=== PATIENT | female | born 1970 | race Caucasian/White ===

== ENCOUNTER 2017-06-10 02:35 | Inpatient (IN) | payer BC, OTHER ==
[~2017-06-10] VITALS: Ht 162.6 cm; Wt 70.4 kg
[~2017-06-10 02:35] MED LIST: ASPCH81X PO; ATOR-24 PO; CHN5 PO; FRRS300 PO; GLC/500 PO; LPR25 PO; LSN25 PO; PEDICHW50 PO; PRLSR20 PO
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
[2017-06-10 03:35] LABS: BASO % 0.3 %; BASO ABS # 0.04 K/uL (0-0.2); COMPLETE YES; HEMATOCRIT 42.7 % (37-47); IG% 0.6 %; LYMPH % 26.4 %; LYMPH ABS # 3.25 K/uL (1.2-3.4); MEAN CELL VOLUME 87.1 fL (80-100); MEAN CORPUSCULAR HEMOGLOBIN 31.2 pg (25-34); MEAN CORPUSCULAR HGB CONC 35.8 g/dl (32-36); MEAN PLATELET VOLUME 10.8 fL (7.4-10.4); MONO % 5.9 %; NEUT % 65.8 %; PLATELET COUNT 210 K/uL (130-400)
[2017-06-10 03:43] LABS: PROTHROMBIN TIME (PATIENT) 10.7 SECONDS (9.0-12.0)
[2017-06-10 04:03] LABS: PREG INTERNAL NEGATIVE QC NEG CLEAR BACKGROUND; PREG INTERNAL POSITIVE QC POS CONTROL LINE
[2017-06-10 04:11] LABS: ALKALINE PHOSPHATASE 86 U/L (45-117); ALT/SGPT 28 U/L (12-78); AST/SGOT 21 U/L (15-37); BLOOD UREA NITROGEN 7 mg/dl (7-18); BUN/CREATININE RATIO 7.7 (10-20); CALCIUM 8.4 mg/dl (8.5-10.1); CARBON DIOXIDE 19 mmol/L (21-32); CHLORIDE 104 mmol/L (98-107); CREATININE 0.94 mg/dl (0.60-1.20); GLUCOSE 383 mg/dl (70-99); POTASSIUM 3.4 mmol/L (3.5-5.1); SODIUM 137 mmol/L (136-145)
[2017-06-10] MEDS ORDERED: LOSA1TAB PO (04:21)
[2017-06-10 04:22] LABS: BETA-HYDROXYBUTYRATE 2.74 mg/dL (0.2-2.81)
[2017-06-10] MEDS ORDERED: FERR1TAB13 PO (04:23)
[2017-06-10] MEDS ORDERED: METO25TA56 PO (04:24)
[2017-06-10] MEDS ORDERED: OPTIRAY 320 IV PRN (04:30)
[2017-06-10 05:15] LABS: URINE APPEARANCE CLEAR (CLEAR); URINE BILIRUBIN NEG (NEG); URINE COLOR YELLOW; URINE EPITHELIAL CELL AUTO >30 /lpf (0-5); URINE NITRITE NEG (NEG); URINE SPECIFIC GRAVITY 1.036 (1.000-1.030); UROBILINOGEN NEG (NEG); ZZUR CULT IF INDIC CLEAN CATCH NO
[2017-06-10 05:17] LABS: MANUAL MICROSCOPIC REQUIRED? NO; REVIEW REQ? YES
[2017-06-10] MEDS ORDERED: CEFAZOLIN SOD 1000MG/5 ML IV PUSH IV STA (05:30)
[2017-06-10] MEDS ORDERED: DIPHTHERIA/TETANUS/PERTUSSIS 0.5 ML SYR/VIAL IM. ONE (05:30)
[2017-06-10] MEDS ORDERED: LIDOCAINE/EPINEPHRINE 1% 20 ML VIAL INFIL ONE (05:30)
[2017-06-10] MEDS ORDERED: XYLOCAINE 1%/SOD BICARB 20 ML VIAL INFIL ONE (05:30)
[2017-06-10 05:33] LABS: BENZODIAZEPINE, URINE NEG (NEG); COCAINE,URINE NEG (NEG); PHENCYCLIDINE, URINE NEG (NEG)
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
[2017-06-10] MEDS ORDERED: FENTANYL CITRATE INJ 50 MCG/1 ML 2 ML VIAL IV STA (07:02)
[2017-06-10] MEDS ORDERED: SODIUM CHLORIDE 0.9% 500ML 500 ML IV STA (07:04)
[2017-06-10] MEDS ORDERED: METFORMIN HCL 500 MG TAB PO STA (07:04)
[2017-06-10] MEDS ORDERED: NovoLIN-R INSULIN PER UNIT CHARGE SC STA ×3 (07:05→11:41)
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
--- NOTE | 2017-06-10 08:13 | EMERGENCY ROOM VISIT NOTE ---
ED Visit Note Patient was seen and evaluated at the request of my attending physician, Dr. holland, for a left forearm laceration. Please see Dr. Holland's dictation for full history of present illness and Emergency Department course outside of this repair. In short, the patient has a self-inflicted laceration to the left forearm. This is a complicated Y-shaped laceration is deep and does penetrate into the muscle belly of the forearm. The laceration measures 28 cm in total. The patient is able to open and close her hand. She is able to move her fingers in full against resistance. She is able to touch her fingers to her thumb. No appreciable numbness noted on examination. Laceration repair. Patient elects to have their laceration repaired. Verbal consent was obtained to perform the procedure. There is an abundance of materials available for the procedure. Patient is not allergic to latex. Using sterile technique the wound was cleaned with Betadine. The area was sterilely draped. 20 ml of 1% buffered lidocaine with epi was used to anesthetize the left forearm. Once the patient was anesthetized, the wound was copiously irrigated under pressure with greater than 1 liter of sterile saline. The wound was explored and there is exposure of the muscle belly with distal laceration of what appears to be in the brachioradialis. The deep structures and fascia were approximated utilizing 5 simple interrupted 6-0 Vicryl sutures. The laceration was repaired using 35 simple interrupted 6-0 nylon sutures with the wound edges being well approximated. Hemostasis was achieved. The area was cleaned with sterile saline and dressed with bacitracin ointment and bandage. Blood loss was negligible. The patient tolerated the procedure well. I referred back to Dr. Holland's dictation for further patient course and disposition. Current/Historical Medications Scheduled Aspirin (Aspirin Chewable), 81 MG PO QAM Atorvastatin (Lipitor), 40 MG PO QAM Ferrous Sulfate (Kp Ferrous Sulfate), 325 MG PO BID Losartan Potassium (Cozaar), 25 MG PO DAILY Metformin Hcl (Glucophage), 500 MG PO QAM Metoprolol Tartrate (Lopressor) (Lopressor), 25 MG PO BID Omeprazole (Prilosec), 20 MG PO QAM Pediatric Multiple Vitamin W/ (Flintstones Chewable), 1 TAB PO QAM Allergies Coded Allergies: Penicillins (Verified Allergy, Mild, RASH, 01/20/16) Vital Signs Date Time Temp Pulse Resp B/P (MAP) Pulse Ox O2 Delivery O2 Flow Rate FiO2 06/10/17 07:30 96 20 117/66 96 Room Air 06/10/17 06:03 99 06/10/17 06:02 97 16 103/67 96 Room Air 06/10/17 05:32 98 17 116/68 97 Room Air 06/10/17 05:02 99 17 129/72 99 Room Air 06/10/17 04:27 91 14 91/52 90 Room Air 06/10/17 02:56 110 06/10/17 02:37 36.7 119 21 131/81 96 Room Air Laboratory Results 06/10/17 03:22 Red Blood Count 4.90, Mean Corpuscular Volume 87.1, Mean Corpuscular Hemoglobin 31.2, Mean Corpuscular Hemoglobin Concent 35.8, Mean Platelet Volume 10.8, Neutrophils (%) (Auto) 65.8, Lymphocytes (%) (Auto) 26.4, Monocytes (%) (Auto) 5.9, Eosinophils (%) (Auto) 1.0, Basophils (%) (Auto) 0.3, Neutrophils # (Auto) 8.10, Lymphocytes # (Auto) 3.25, Monocytes # (Auto) 0.72, Eosinophils # (Auto) 0.12, Basophils # (Auto) 0.04 06/10/17 03:22 Test 06/10/17 03:22 06/10/17 04:56 White Blood Count 12.30 K/uL (4.8-10.8) Red Blood Count 4.90 M/uL (4.2-5.4) Hemoglobin 15.3 g/dL (12.0-16.0) Hematocrit 42.7 % (37-47) Mean Corpuscular Volume 87.1 fL (80-100) Mean Corpuscular Hemoglobin 31.2 pg (25-34) Mean Corpuscular Hemoglobin Concent 35.8 g/dl (32-36) Platelet Count 210 K/uL (130-400) Mean Platelet Volume 10.8 fL (7.4-10.4) Neutrophils (%) (Auto) 65.8 % Lymphocytes (%) (Auto) 26.4 % Monocytes (%) (Auto) 5.9 % Eosinophils (%) (Auto) 1.0 % Basophils (%) (Auto) 0.3 % Neutrophils # (Auto) 8.10 K/uL (1.4-6.5) Lymphocytes # (Auto) 3.25 K/uL (1.2-3.4) Monocytes # (Auto) 0.72 K/uL (0.11-0.59) Eosinophils # (Auto) 0.12 K/uL (0-0.5) Basophils # (Auto) 0.04 K/uL (0-0.2) RDW Standard Deviation 41.8 fL (36.4-46.3) RDW Coefficient of Variation 13.1 % (11.5-14.5) Immature Granulocyte % (Auto) 0.6 % Immature Granulocyte # (Auto) 0.07 K/uL (0.00-0.02) Prothrombin Time 10.7 SECONDS (9.0-12.0) Prothromb Time International Ratio 1.0 (0.9-1.1) Anion Gap 14.0 mmol/L (3-11) Est Creatinine Clear Calc Drug Dose 73.3 ml/min Estimated GFR () 84.9 Estimated GFR (Non- 73.3 BUN/Creatinine Ratio 7.7 (10-20) Calcium Level 8.4 mg/dl (8.5-10.1) Total Bilirubin 0.3 mg/dl (0.2-1) Aspartate Amino Transf (AST/SGOT) 21 U/L (15-37) Alanine Aminotransferase (ALT/SGPT) 28 U/L (12-78) Alkaline Phosphatase 86 U/L (45-117) Troponin I < 0.015 ng/ml (0-0.045) Total Protein 7.1 gm/dl (6.4-8.2) Albumin 3.5 gm/dl (3.4-5.0) Globulin 3.6 gm/dl (2.5-4.0) Albumin/Globulin Ratio 1.0 (0.9-2) Beta-Hydroxybutyric Acid 2.74 mg/dL (0.2-2.81) Human Chorionic Gonadotropin, Qual POS (NEG) Human Chorionic Gonadotropin, Quant 8 mIU/mL Ethyl Alcohol mg/dL 148.0 mg/dl (0-3) Urine Color YELLOW Urine Appearance CLEAR (CLEAR) Urine pH 5.0 (4.5-7.5) Urine Specific [place] 1.036 (1.000-1.030) Urine Protein 3+ (NEG) Urine Glucose (UA) 3+ (NEG) Urine Ketones NEG (NEG) Urine Occult Blood NEG (NEG) Urine Nitrite NEG (NEG) Urine Bilirubin NEG (NEG) Urine Urobilinogen NEG (NEG) Urine Leukocyte Esterase NEG (NEG) Urine WBC (Auto) 1-5 /hpf (0-5) Urine RBC (Auto) 0-4 /hpf (0-4) Urine Hyaline Casts (Auto) 1-5 /lpf (0-5) Urine Epithelial Cells (Auto) >30 /lpf (0-5) Urine Bacteria (Auto) NEG (NEG) Urine Renal Epithelial Cells 0-5 /lpf (0-5) Urine Opiates Screen NEG (NEG) Urine Methadone, Qualitative NEG (NEG) Urine Barbiturates NEG (NEG) Urine Phencyclidine (PCP) Level NEG (NEG) Ur Amphetamine/Methamphetamine NEG (NEG) MDMA (Ecstasy) Screen NEG (NEG) Urine Benzodiazepines Screen NEG (NEG) Urine Cocaine Metabolite NEG (NEG) Urine Marijuana (THC) POS (NEG) Medications Administered Medications (Trade) Dose Ordered Sig/Marcos Route Start Time Stop Time Status Last Admin Dose Admin Diphtheria/ Pertussis/Tetanus Vacc (Adacel Inj) 0.5 ml ONCE ONCE IM. 06/10/17 05:30 06/10/17 05:31 DC 06/10/17 05:46 0.5 ML Cefazolin Sodium (Cefazolin 1000mg Iv Push) 1,000 mg NOW STAT IV 06/10/17 05:30 06/10/17 05:32 DC 06/10/17 05:46 1,000 MG Fentanyl Citrate (Fentanyl Inj) 75 mcg NOW STAT IV 06/10/17 07:02 06/10/17 07:03 DC 06/10/17 07:10 75 MCG Sodium Chloride 500 ml @ 999 mls/hr Q31M STAT IV 06/10/17 07:04 06/10/17 07:34 DC 06/10/17 07:22 999 MLS/HR Insulin Human Regular (novoLIN-R U-100 PER UNIT) 4 units NOW STAT SC 06/10/17 07:05 06/10/17 07:06 DC 06/10/17 07:05 4 UNITS Departure Information Impression Primary Impression: Alcohol intoxication Additional Impressions: Noncompliance Laceration Hyperglycemia CHI (closed head injury) Self-harming behavior Facial contusion Abrasion Referrals Live Alfonso D.O. (PCP) Patient Instructions [facility] Problem Qualifiers
--- NOTE | 2017-06-10 08:24 | DIAGNOSTIC IMAGING REPORT ---
HEAD WITHOUT CONTRAST (CT) CLINICAL HISTORY: 47 years-old Female presenting with trauma. TECHNIQUE: Multidetector CT imaging of the head was performed without the use of intravenous contrast. IV contrast: None. A dose lowering technique was used consistent with the principles of ALARA (as low as reasonably achievable). COMPARISON: None. CT DOSE (mGy.cm): The estimated cumulative dose is 1573.13 mGy.cm. FINDINGS: Vp Foundation topogram: Unremarkable. Ventricles and sulci normal in size. Brain parenchyma normal in appearance with preserved donohue-white differentiation. No mass effect or midline shift. No hemorrhage or acute territorial infarct. No extra-axial fluid collection. Paranasal sinuses and mastoid air cells clear. Calvarium intact. IMPRESSION: 1. No acute intracranial abnormality. Electronically signed by: Sarmad Israel M.D. 06/10/2017 8:23 AM Dictated Date/Time: 06/10/2017 8:21 AM
--- NOTE | 2017-06-10 08:28 | DIAGNOSTIC IMAGING REPORT ---
CERVICAL SPINE W/O CLINICAL HISTORY: 47 years-old Female presenting with trauma, physical sulci, altered mental status. TECHNIQUE: Multidetector CT of the cervical spine was performed without the use of intravenous contrast. IV contrast: None. A dose lowering technique was used consistent with the principles of ALARA (as low as reasonably achievable). COMPARISON: None. CT DOSE (mGy.cm): The estimated cumulative dose is 1573.[address] scans. FINDINGS: Concrete Layer topogram: Unremarkable. Straightening of normal cervical lordosis likely positional. Vertebral bodies maintain normal height and alignment. Intervertebral disc spaces preserved. Disc osteophyte complex noted at C6-7 with prominent posterior bony spurring resulting in osseous spinal canal narrowing at this level. No osseous neural foraminal narrowing. No acute fracture or malalignment. Mild degenerative changes also noted at the lateral dental reticulation. Paraspinal musculature within normal limits. Small amount of fluid and debris distends the cervical esophagus. Lung apices clear. IMPRESSION: 1. No acute osseous injury of the cervical spine. 2. Fluid and debris distends the cervical esophagus. Electronically signed by: Sarmad Israel M.D. 06/10/2017 8:26 AM Dictated Date/Time: 06/10/2017 8:23 AM
--- NOTE | 2017-06-10 08:29 | DIAGNOSTIC IMAGING REPORT ---
R FOREARM 2 VIEWS ROUTINE CLINICAL HISTORY: 47 years-old Female presenting with trauma, physical sulci, altered mental status. TECHNIQUE: Frontal and lateral views of the right forearm are obtained. COMPARISON: None. FINDINGS: A peripheral intravenous catheter overlies the antecubital fossa. No acute fracture or malalignment. Elbow joint and radiocarpal articulations intact. Proximal and distal radial ulnar articulations intact. No degenerative change. No radiographic soft tissue abnormality. IMPRESSION: No acute osseous injury of the right forearm. Electronically signed by: Sarmad Israel M.D. 06/10/2017 8:27 AM Dictated Date/Time: 06/10/2017 8:26 AM
--- NOTE | 2017-06-10 08:33 | DIAGNOSTIC IMAGING REPORT ---
FACIAL BONES-MXILLOFAC WITHOUT CLINICAL HISTORY: 47 years-old Female presenting with trauma, physical solve, altered mental status. TECHNIQUE: Multidetector CT of the face was performed without the use of intravenous contrast. IV contrast: None. A dose lowering technique was used consistent with the principles of ALARA (as low as reasonably achievable). COMPARISON: None. CT DOSE (mGy.cm): The estimated cumulative dose is 1573.[address] scans. FINDINGS: Edi Programmer Analyst topogram: Unremarkable. Asymmetric soft tissue swelling and infiltration of the subcutaneous tissues overlying the left periorbital and premaxillary region. The orbits are normal. No subjacent osseous injury. Minimal bony nasal septal deviation to the left. The nasal bones demonstrate deviation to the right, which may be chronic. No displaced fracture to suggest acute injury. Limited calcification along the cutis of the for head likely relates to cystic acne. Limited intracranial evaluation within normal limits. Paranasal sinuses and mastoid air cells clear. IMPRESSION: No acute osseous injury of the face. Superficial soft tissue contusion of the left periorbital/premaxillary region. Electronically signed by: Sarmad Israel M.D. 06/10/2017 8:32 AM Dictated Date/Time: 06/10/2017 8:28 AM
[2017-06-10 09:00] VITALS: O2SAT 97
[2017-06-10] MEDS ORDERED: ACETAMINOPHEN 325 MG TAB PO STA (09:41)
[2017-06-10] MEDS ORDERED: IBUPROFEN 200 MG TAB PO STA (12:25)
--- NOTE | 2017-06-10 13:54 | EMERGENCY ROOM VISIT NOTE ---
ED Visit Note First contact with patient: 10:55 This patient sinus me at shift change by Dr. holland. At that point the patient was medically cleared and was awaiting psychiatric evaluation. She did cut herself after drinking last night the required a significant amount of stitches and the laceration had been closed by Blake Cameron. The patient's blood sugar was elevated. I checked it before lunch and it was in the low 200s. She was given 5 units of insulin with her lunch. She has been noncompliant with her meds and needs to get started back on her metformin for this. Her test was 8 on the quantitative value. I think this is most likely not a . She has not had a period of 5 months and I think she is perimenopausal and this is falsely elevated. She was further evaluated and is going to be admitted to [address] [place] [address] voluntarily for further inpatient treatment and evaluation.
[2017-06-10] MEDS ORDERED: NURSING VERBAL MED ORDER ONE ×2 (14:00→18:45)
[2017-06-10] MEDS ORDERED: ACETAMINOPHEN 325 MG TAB PO PRN (14:15)
[2017-06-10] MEDS ORDERED: ALUMINUM/MAGNESIUM SUSP 30 ML UDC PO PRN (14:15)
[2017-06-10] MEDS ORDERED: SODIUM CHLORIDE 0.65% NA SOLN 45 ML (OCEAN) PRN (14:15)
[2017-06-10] MEDS ORDERED: MAGNESIUM HYDROXIDE SUSP 30 ML UDC PO PRN (14:15)
[2017-06-10] MEDS ORDERED: hydrOXYzine HCL 25 MG TAB PO PRN ×2 (14:15)
[2017-06-10] MEDS ORDERED: BISMUTH SUBSALICYLATE PER ML OMNICELL CHARGE PO PRN (14:15)
--- NOTE | 2017-06-10 14:58 | Psychiatric Progress Notes ---
Psychiatric Progress Note Date of Service Jun 10, 2017. 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 Patient with no prior psych hx, significant lac while intoxicated during family argument, agreeable to 201. I reviewed case with Dr. Tracy given positive Hcg and concerns about significantly elevated BACs. 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 She is ordered to have repeat Hcg in 2 days with formal consult if doubles, is felt to be unlikely per Dr. Sanchez given reported perimenopause but could not be definitively excluded at this time. Patient requesting nicotine patch. On review of records, patient did not have TSH in ED. Diabetic pharmacist consulted for closer monitoring of glucose control. Added Hgb A1C and TSH to next blood draw. Reviewed with staff, had not yet arrived to unit after 1:30 pm and all felt would be more receptive to prescriber assessment in am. H&P to be officially documented by 1:53 pm on 06/11/17.
[2017-06-10 15:05] VITALS: BP 127/80; PULSE 108; TEMP 37; BMI 26.6
[2017-06-10] MEDS ORDERED: PHARMACY GLYCEMIC MGMT CONSULT PRN (15:26)
[2017-06-10] MEDS: NICOTINE 21 MG/24 HR TDSY TD SCH (15:36)
[2017-06-10] MEDS ORDERED: GLUCOSE 10 TABS/TUBE PO PRN (15:45)
[2017-06-10] MEDS ORDERED: DEXTROSE 50% 50 ML SYR IV PRN (15:45)
[2017-06-10] MEDS ORDERED: GLUCOSE 40% GEL 15 GM TUBE PO PRN (15:45)
[2017-06-10] MEDS ORDERED: GLUCAGON FOR INJ 1 MG VIAL SQ PRN (15:45)
--- NOTE | 2017-06-10 15:52 | Pharmacy Progress Note ---
Glycemic Control Intl Consult Date of Service Jun 10, 2017. Scope Glycemic Pharmacist consulted by Dr Ayala on 05/31/17 for glycemic control and to write orders per [facility] inpatient glycemic control protocol Objective Weight (Kilograms): 70.400 Accuchecks BSG (last 24hrs): Test 06/10/17 03:22 06/10/17 08:08 06/10/17 10:31 06/10/17 11:24 Random Glucose 383 mg/dl (70-99) Bedside Glucose 329 mg/dl (70-90) 239 mg/dl (70-90) 228 mg/dl (70-90) Laboratory Data (last 24hrs) Test 06/10/17 03:22 Anion Gap 14.0 mmol/L BUN/Creatinine Ratio 7.7 Blood Urea Nitrogen 7 mg/dl Creatinine 0.94 mg/dl Potassium Level 3.4 mmol/L Sodium Level 137 mmol/L White Blood Count 12.30 K/uL Red Blood Count 4.90 M/uL Hemoglobin 15.3 g/dL Hematocrit 42.7 % Mean Corpuscular Volume 87.1 fL Mean Corpuscular Hemoglobin 31.2 pg Mean Corpuscular Hemoglobin Concent 35.8 g/dl Platelet Count 210 K/uL Mean Platelet Volume 10.8 fL Neutrophils (%) (Auto) 65.8 % Lymphocytes (%) (Auto) 26.4 % Monocytes (%) (Auto) 5.9 % Eosinophils (%) (Auto) 1.0 % Basophils (%) (Auto) 0.3 % Neutrophils # (Auto) 8.10 K/uL Lymphocytes # (Auto) 3.25 K/uL Monocytes # (Auto) 0.72 K/uL Eosinophils # (Auto) 0.12 K/uL Basophils # (Auto) 0.04 K/uL HbA1c last A1c in record is outdated, 7.7% on 11/13/15 Recent Pertinent Medications Outpatient Anti-diabetic Regimen: * metformin 500mg PO daily Risk Factors for Insulin Resistance: * ? * Stress * Diet Assessment & Plan ASSESSMENT: * 47yo diabetic female with unknown degree of outpatient control * Previous A1c is outdated, re-ordered for next lab draw tomorrow AM * Pt is maintained on oral antidiabetic agents as an outpatient * Will hold oral agents for admission and utilize SQ basal bolus insulin regimen which is the recommended regimen for inpatient glycemic control. * Will initiate weight based insulin dosing for insulin eleanor patient and titrate based on BSG trends. * Human insulins are preferred in if this is confirmed. Both Lantus + NovoLog are safe for use during . * BSG significantly elevated on admission, unsure if this is secondary to baseline poor diabetes control, stress, alcohol, etc * Pt received 2 doses of SQ regular insulin in ED, BSG now trending downwards PLAN FOR INPATIENT GLYCEMIC CONTROL: * Holding outpatient oral diabetes medications {metformin} * Basal insulin * Weight based dosing of Lantus per "scale" based on BSG as insulin needs are uncertain * If BSG below 140mg/dl --> 0 units * If BSG 140-180mg/dl --> 14 units (0.2 units/kg) * If BSG >180mg/dl --> 17 units (0.24 units/kg) * Titrate dosing to goal AM fasting BSG <140mg/dl * Bolus insulin * NovoLog per scale ACHS or Q6hrs while NPO * Goal Range: Low 110 mg/dL - High 140 mg/dL * Correction Factor: 30 mg/dL/unit * Nutritional / Prandial insulin per carb ratio of 1 unit per 10 grams CHO consumed * A1c with AM labs tomorrow * Please note that the plan above was derived based on current level of insulin resistance and hospital stress. These recommendations are appropriate for inpatient admission only. Plan of care upon discharge will need to be reassessed to avoid potential outpatient hypo/hyperglycemia. Thank you.
[2017-06-10] MEDS: IBUPROFEN 600 MG TAB PO PRN ×2 (15:57→22:24)
[2017-06-10 17:38] VITALS: BP 122/84; PULSE 98; TEMP 36.8
[2017-06-10] MEDS: INSULIN GLARGINE SOLOSTAR 100 UNITS/ML 3 ML PEN SC SCH (18:02)
[2017-06-10] MEDS: INSULIN ASPART 100 UNITS/ML 3 ML PEN SC SCH ×2 (18:05→22:00)
[2017-06-10] MEDS: OXYCODONE/ACETAMINOPHEN 5-325 TAB PO PRN (19:11)
[2017-06-10 20:49] VITALS: BP 118/84; PULSE 90; TEMP 36.6
[2017-06-10] MEDS ORDERED: INSULIN GLARGINE SOLOSTAR 100 UNITS/ML 3 ML PEN SC SCH (22:00)
[2017-06-11 08:07] VITALS: BP_SYST 131; BP_SYST 134; BP_DIAS 77; BP_DIAS 78; PULSE 78; TEMP 36.7
[2017-06-11 08:25] LABS: POTASSIUM 3.5 mmol/L (3.5-5.1)
[2017-06-11 08:29] LABS: ESTIMATED AVERAGE GLUCOSE 217 mg/dl; HA1C FLAG Normal (Normal)
[2017-06-11 08:39] LABS: THYROID STIMULATING HORMONE 0.685 uIu/ml (0.300-4.500)
[2017-06-11] MEDS: INSULIN ASPART 100 UNITS/ML 3 ML PEN SC SCH ×4 (08:42→21:39)
[2017-06-11] MEDS ORDERED: METFORMIN HCL 500 MG TAB PO SCH (09:00)
[2017-06-11] MEDS: ASPIRIN 81 MG CHEW PO SCH (09:05)
[2017-06-11] MEDS: LOSARTAN POTASSIUM 25 MG TAB PO SCH (09:05)
[2017-06-11] MEDS: FERROUS SULFATE 325 MG TAB PO SCH ×2 (09:05→17:38)
[2017-06-11] MEDS: FLINTSTONES COMPLETE CHEWABLE TAB PO SCH (09:06)
[2017-06-11] MEDS: ATORVASTATIN 40 MG TAB PO SCH (09:06)
[2017-06-11] MEDS: METOPROLOL TARTRATE 25 MG TAB PO SCH ×2 (09:06→21:37)
[2017-06-11] MEDS: PANTOprazole SOD 40 MG TAB PO SCH (09:07)
[2017-06-11] MEDS: NICOTINE 21 MG/24 HR TDSY TD SCH (09:15)
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
[2017-06-11 13:30] VITALS: BP 125/80; PULSE 81; TEMP 37.3
[2017-06-11] MEDS: OXYCODONE/ACETAMINOPHEN 5-325 TAB PO PRN ×2 (14:35→21:43)
[2017-06-11 15:09] VITALS: Ht 162.6 cm; Wt 70.4 kg
[2017-06-11 16:12] VITALS: BP 101/70; PULSE 98; TEMP 36.4
[2017-06-11] MEDS: IBUPROFEN 600 MG TAB PO PRN (16:35)
[2017-06-11 21:30] VITALS: BP 131/72; PULSE 101; TEMP 36.6
[2017-06-11] MEDS: INSULIN GLARGINE SOLOSTAR 100 UNITS/ML 3 ML PEN SC SCH (21:35)
[2017-06-12 07:03] VITALS: BP_SYST 124; BP_SYST 127; BP_DIAS 80; BP_DIAS 81; PULSE 76; PULSE 78; TEMP 36.9
[2017-06-12] MEDS: OXYCODONE/ACETAMINOPHEN 5-325 TAB PO PRN ×2 (08:08→20:06)
[2017-06-12] MEDS: LOSARTAN POTASSIUM 25 MG TAB PO SCH (08:43)
[2017-06-12] MEDS: ASPIRIN 81 MG CHEW PO SCH (08:43)
[2017-06-12] MEDS: FLINTSTONES COMPLETE CHEWABLE TAB PO SCH (08:44)
[2017-06-12] MEDS: METOPROLOL TARTRATE 25 MG TAB PO SCH ×2 (08:44→21:15)
[2017-06-12] MEDS: FERROUS SULFATE 325 MG TAB PO SCH ×2 (08:44→17:39)
[2017-06-12] MEDS: ATORVASTATIN 40 MG TAB PO SCH (08:44)
[2017-06-12] MEDS: PANTOprazole SOD 40 MG TAB PO SCH (08:44)
[2017-06-12] MEDS: NICOTINE 21 MG/24 HR TDSY TD SCH (08:45)
[2017-06-12 08:46] VITALS: BP 124/81; PULSE 76; PULSE 78; TEMP 36.9
[2017-06-12] MEDS: INSULIN ASPART 100 UNITS/ML 3 ML PEN SC SCH ×4 (08:52→21:18)
[2017-06-12] MEDS: INSULIN GLARGINE SOLOSTAR 100 UNITS/ML 3 ML PEN SC SCH (08:53)
[2017-06-12] MEDS ORDERED: METFORMIN HCL 500 MG TAB PO SCH ×2 (09:00→11:00)
--- NOTE | 2017-06-12 10:27 | Pharmacy Progress Note ---
Pharmacy Glycemic Short Note 2 Date of Service Jun 12, 2017. OUTPATIENT ANTIDIABETIC REGIMEN: * Metformin 500 mg daily * A1c 9.2% on 06/11/17 ASSESSMENT: * Ms. Bajwa received 19 units of insulin yesterday with BSGs ranging from 127- 200 mg/dL in the past 24 hours * Her metformin was restarted by Dr. Hernandez yesterday but was placed on hold this AM until the repeat HCG was drawn. I spoke with Dr. Hernandez and confirmed with her that OB states it is not a . Although metformin can be used in , it is generally not first line, so I wanted to confirm the results before resuming. * Will plan to resume metformin today, with plans for outpatient titration, as per CDE recommendations * Will keep Lantus on board for now, especially since her fasting is elevated this AM without basal given yesterday. May need to titrate this down as metformin reaches steady state. PLAN FOR INPATIENT GLYCEMIC CONTROL: * Resume metformin 500 mg daily * Change Lantus to 15 units qAM - may need to reduce once metformin back on board * Continue Novolog ACHS * Goal 110-140 * CF 30 * CR 10 PLAN FOR DISCHARGE: * Continue metformin 500 mg daily - titrate by 500 mg weekly to goal of 1000 mg BID
[2017-06-12] MEDS: BACITRACIN OINT 15 GM TUBE EXT SCH (10:30)
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
[2017-06-12] MEDS: IBUPROFEN 600 MG TAB PO PRN ×2 (12:27→21:16)
[2017-06-12 20:49] VITALS: BP 131/82; PULSE 88
[2017-06-13 06:50] VITALS: BP_SYST 120; BP_SYST 122; BP_DIAS 74; BP_DIAS 76; PULSE 69; PULSE 70; TEMP 36.7
[2017-06-13] MEDS: ASPIRIN 81 MG CHEW PO SCH (08:32)
[2017-06-13] MEDS: LOSARTAN POTASSIUM 25 MG TAB PO SCH (08:32)
[2017-06-13] MEDS: FERROUS SULFATE 325 MG TAB PO SCH (08:33)
[2017-06-13] MEDS: METOPROLOL TARTRATE 25 MG TAB PO SCH (08:33)
[2017-06-13] MEDS: FLINTSTONES COMPLETE CHEWABLE TAB PO SCH (08:33)
[2017-06-13] MEDS: ATORVASTATIN 40 MG TAB PO SCH (08:33)
[2017-06-13] MEDS: PANTOprazole SOD 40 MG TAB PO SCH (08:33)
[2017-06-13] MEDS: NICOTINE 21 MG/24 HR TDSY TD SCH (08:36)
[2017-06-13 08:50] VITALS: BP 124/81; PULSE 76; PULSE 78; TEMP 36.9
[2017-06-13] MEDS: BACITRACIN OINT 15 GM TUBE EXT SCH (09:00)
[2017-06-13] MEDS ORDERED: INSULIN GLARGINE SOLOSTAR 100 UNITS/ML 3 ML PEN SC SCH ×2 (09:00)
[2017-06-13] MEDS: INSULIN ASPART 100 UNITS/ML 3 ML PEN SC SCH ×2 (09:06→14:43)
--- NOTE | 2017-06-13 10:41 | Pharmacy Progress Note ---
Pharmacy Glycemic Short Note 2 Date of Service Jun 13, 2017. OUTPATIENT ANTIDIABETIC REGIMEN: * Metformin 500 mg daily * A1c 9.2% on 06/11/17 ASSESSMENT: * 47yo T2DM female receiving SQ basal bolus insulin regimen with Lantus + NovoLog while outpatient regimen {metofrmin} on hold * Metformin resumed yesterday but current dosing is absolute minimal dose that can be used. A1c is elevated indicating that change/increase to outpatient regimen is needed. Will start titration in house for better inpatient control. * Sq basal bolus insulin regimen will be continued with metformin titration as metformin alone is likely insufficient for adequate glycemic control per elevated A1c. * Patient has received 32 units of insulin over the past 24hrs * 14 units of basal insulin with Lantus * 18 units of prandial/correctional with NovoLog * 500mg of metformin as well * AM fasting BSG is above goal range based on age/co-morbidities at 153mg/dl -- > more basal insulin is needed * post-prandial BSGs are elevated at 175, 155, 178 mg/dl --> will increase metformin to BID and continue with current CF/CR. PLAN FOR INPATIENT GLYCEMIC CONTROL: * Basal insulin: increase dose * Lantus 17 units SQ daily in AM * Bolus insulin * NovoLog per scale ACHS or Q6hrs while NPO * Goal Range: Low 110 mg/dL - High 140 mg/dL * Correction Factor: 30 mg/dL/unit * Nutritional / Prandial insulin per carb ratio of 1 unit per 10 grams CHO consumed * Metformin * Increase dose from 500mg daily to BIDM. PLAN FOR DISCHARGE: * Continue to titrate metformin dosing upwards as recommended. Dosage increases should be made in increments of 500 mg weekly, up to 2,000 mg/day PO, given in divided doses. Doses above 2000 mg/day may be better tolerated if divided and given 3 times per day with meals. Max: 2,550 mg/day PO, in divided doses * Typically, the XR formulation of metformin is better tolerated (GI katz) than the IR formulation. May consider changing to XR if GI side effects occur with increased dosing. * B12 supplementation may be necessary with intermediate metformin use * Per ADA recommendations, Patient will need another agent + metformin at discharge based on elevated A1c of >9%. Subsequent agent choice should be based on patient specific factors of: hypo risk, weight effect, side effects, cost * GLP-1 RA: high efficacy, low hypo risk, weight loss, significant GI side effects (titrate low and slow), high cost * SGLT-2i: intermediate efficacy, low hypo risk, weight loss, /dehydration side effects, positive cardiac effects, high cost * DPP-4i: intermediate efficacy (not efficacious for long-standing DM), low hypo risk, weight neutral, rare side effects (well tolerated), high cost * TZD: high efficacy, low hypo risk, weight gain, significant side effects ( edema, HF, fxs), low cost * Basal insulin: high efficacy, hypo risk, weight gain, well tolerated, cost * * These agents can be discussed with PCP.
[2017-06-13] MEDS: IBUPROFEN 600 MG TAB PO PRN (10:51)
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
[2017-06-13] MEDS ORDERED: METFORMIN HCL 500 MG TAB PO SCH (17:45)
== END 2017-06-13 15:15 | disposition home or self-care (01) | DRG 876 ==
LOC: EDBD 02:35 → C.EDA 02:37 → C.MHU 13:52
PROVIDERS: ADMIT Psychiatry & Neurology Child & Adolescent Psychiatry; ATTEND Psychiatry & Neurology Psychiatry
PROC: 0JQH0ZZ Repair Left Lower Arm Subcutaneous Tissue and Fascia, Open Approach (ICD-10-PCS; principal; 2017-06-10)
DX: F32.9 Major depressive disorder, single episode, unspecified (principal); S51.812A Laceration without foreign body of left forearm, initial encounter; S00.83XA Contusion of other part of head, initial encounter; S80.02XA Contusion of left knee, initial encounter; S50.11XA Contusion of right forearm, initial encounter; F10.129 Alcohol abuse with intoxication, unspecified; M54.2 Cervicalgia; Z23 Encounter for immunization; E11.65 Type 2 diabetes mellitus with hyperglycemia; Y90.9 Presence of alcohol in blood, level not specified; I25.2 Old myocardial infarction; I25.10 Atherosclerotic heart disease of native coronary artery without angina pectoris; F17.210 Nicotine dependence, cigarettes, uncomplicated; Z32.01 Encounter for pregnancy test, result positive; Z91.14 Patient's other noncompliance with medication regimen; Z79.899 Other long term (current) drug therapy; Z79.84 Long term (current) use of oral hypoglycemic drugs; Z79.82 Long term (current) use of aspirin; Z98.51 Tubal ligation status; X78.0XXA Intentional self-harm by sharp glass, initial encounter; Y92.009 Unspecified place in unspecified non-institutional (private) residence as the place of occurrence of the external cause; Y99.8 Other external cause status